=== PATIENT | male | born 2000 | race Caucasian/White ===

== ENCOUNTER 2022-03-07 14:41 | Emergency (ER) | payer OTHER, SELFPAY ==
[2022-03-07 14:48] VITALS: BP 128/65; PULSE 65; RESP 16; TEMP 35.9; O2SAT 97; BMI 31.2
--- NOTE | 2022-03-07 15:56 | ED.WOUNDLAC ---
HPI - Wound/Laceration General Chief Complaint: Laceration/Wound Stated Complaint: Left Thumb Laceration / Injury with Tablesaw Time Seen by Provider: 03/07/22 14:54 History of Present Illness HPI narrative: This 21-year-old male comes in with a injury to his left thumb. He was using a table saw at work when his thumb got into the blade. He has a macerated laceration on the pad of the left thumb. There is a chewed up skin flap that is still attached. His tetanus is up-to-date. He does not have any other injury. Related Data Allergies Allergy/AdvReac Type Severity Reaction Status Date / Time No Known Drug Allergies Allergy Verified 03/07/22 14:46 Review of Systems Status of ROS: Reports: 10 or more systems reviewed and unremarkable except as noted in History and below Narrative: Constitutional: No fevers, no weight gain or loss. Eyes: No discharge. No vision changes. HENT: No congestion, no sore throat, no ear pain. Cardiovascular: No chest pain, no palpitations. Respiratory: No shortness of breath, no wheezes, no cough. Gastrointestinal: No abdominal pain, no vomiting, no diarrhea. Genitourinary: No dysuria, no hematuria. Musculoskeletal: Normal range of motion. Left thumb injury as described above. Skin: No rashes, no pruritis. Neurological: No dizziness, weakness, sensory change, speech change. Endo/Heme/Allergies: No bruising or bleeding. No polydipsia. Pysch: no suicidality, no anxiety, no insomnia. All other systems reviewed and are negative. [facility] Social History Smoking Status: Never smoker Do you use any of these nicotine containing products: None Second hand tobacco smoke exposure: No How often do you have a drink containing alcohol: monthly or less AUDIT-C Alcohol total score: 1 Non-prescribed substance use: marijuana (any form) service: No Exam Narrative: Exam Narrative: Constitutional: Well-developed, well-nourished, no acute distress. HEENT: Normocephalic, atraumatic. Neck: Normal range of motion. Nontender. Supple. Heart: Intact distal pulses. Lungs: No chest discomfort. No wheezes, rhonchi, or rales. Abdomen: Nontender. Back: Normal range of motion. Extremities: Normal range of motion. The pad of the left distal thumb has a laceration from a table saw. There is a flap a tissue that is still attached but rather irregular. No sign of tendon or ligament injury. Skin: Intact. No rash. Warm. No erythema or pallor. Neurologic: No altered sensation. No weakness. Alert and oriented. Psychiatric: No suicidality. No anxiety or depression. No insomnia. Nursing notes and vitals signs are reviewed. Const: Vital Signs, click to edit/add: Vital Signs - 24 hr 03/07/22 14:48 Temperature 96.6 F L Pulse Rate [Pulse Oximeter] 65 Respiratory Rate 16 Blood Pressure [Ri t Upper Arm] 128/65 Pulse Oximetry 97 Oxygen Delivery Me thod Room Air Course Vital Signs Vital signs: Initial Vital Signs Temperature 96.6 F L 03/07/22 14:48 Temperature Source Temporal Artery Scan 03/07/22 14:48 Pulse Rate 65 03/07/22 14:48 Pulse Rhythm 03/07/22 14:48 Pulse Strength 3+ Normal 03/07/22 14:48 Respiratory Rate 16 03/07/22 14:48 Blood Pressure 128/65 03/07/22 14:48 Blood Pressure Mean 86 03/07/22 14:48 Blood Pressure Position Sitting 03/07/22 14:48 Pulse Oximetry 97 03/07/22 14:48 Oxygen Delivery Method 03/07/22 14:48 Vital Signs Temperature 96.6 F L 03/07/22 14:48 Pulse Rate 65 03/07/22 14:48 Respiratory Rate 16 03/07/22 14:48 Blood Pressure 128/65 03/07/22 14:48 Pulse Oximetry 97 03/07/22 14:48 Oxygen Delivery Method 03/07/22 14:48 Temperature 96.6 F L 03/07/22 14:48 Pulse Rate 65 03/07/22 14:48 Respiratory Rate 16 03/07/22 14:48 Blood Pressure 128/65 03/07/22 14:48 Pulse Oximetry 97 03/07/22 14:48 Oxygen Delivery Method 03/07/22 14:48 MDM - Wound/Laceration MDM Narrative Medical decision making narrative: After anesthesia with 1% lidocaine the wound was explored to its base. The flap of tissue is attached but is rather irregular. I did elect to suture this back in place as best as possible as it also served to help control bleeding. Five sutures were placed in interrupted fashion. The length of this wound is approximately 4 cm around the edges. Instructions were giving regarding wound care. He will need to return to clinic or urgent care in 7-10 days for suture removal. Discharge Plan Discharge Clinical Impression: Laceration Patient Disposition: Home, Self-Care Condition: Stable Additional Instructions: Keep wound clean and dry. Use [id number] medicines as needed and directed. Return to clinic or urgent care in 7-10 days for suture removal. Stand Alone Forms: [employer] Info Instructions
--- NOTE | 2022-03-07 16:05 | ED.NURSE ---
Lac repair by . Dressing applied by EDT. Bleeding controlled.
[2022-03-07 16:06] VITALS: BP 128/65; PULSE 65; RESP 16; TEMP 35.9
== END 2022-03-07 16:15 | disposition home or self-care (01) ==
LOC: ED 16:23
PROVIDERS: Emergency Provider Emergency Medicine Emergency Medical Services
DX: S61.012A Laceration without foreign body of left thumb without damage to nail, initial encounter (principal); W31.2XXA Contact with powered woodworking and forming machines, initial encounter
CPT/HCPCS: 12002; 99283; 99284